=== PATIENT | male | born 1950 | race African-American/Black ===

== ENCOUNTER 2019-09-25 10:55 | Observation (INO) ==
[2019-09-25] MEDS: NS 1,000 ML IV SCH (16:47)
[2019-09-25] MEDS: HUMALOG SUBQ SCH ×2 (16:47→20:28)
[2019-09-25] MEDS: LOVENOX SUBQ SCH (20:28)
[2019-09-25] MEDS: TOUJEO SOLOSTAR SUBQ SCH (20:29)
[2019-09-25] MEDS ORDERED: HUMALOG SUBQ SCH (21:00)
[2019-09-25] MEDS ORDERED: NEXIUM IV SCH (22:00)
[2019-09-25] MEDS ORDERED: SODIUM CHLORIDE 0.9% INJ SCH (22:00)
--- NOTE | 2019-09-26 00:04 | EKG Report ---
Test Performed on : 09/25/2019 10:01:21 PM Test Reason : chest pain Blood Pressure : / mmHG Vent. Rate : 054 BPM Atrial Rate : 054 BPM P-R Int : 192 ms QRS Dur : 094 ms QT Int : 450 ms P-R-T Axes : 040 -26 027 degrees QTc Int : 426 ms Sinus bradycardia. Incomplete right bundle branch block Borderline ECG No previous ECGs available Confirmed by Kellie SUÁREZ, Cameron Burrell ([id number]) on 09/26/2019 7:34:15 AM
--- NOTE | 2019-09-26 04:56 | HISTORY AND PHYSICAL ---
CHIEF COMPLAINT: Slurring of speech, headaches, stroke-like symptoms. HISTORY OF PRESENT ILLNESS: He is a 69-year-old male who was seen at [facility] yesterday with stroke-like symptoms. Apparently I do not have the full report. CT was reported negative. He was sent home and as per the he was confused, slurring of speech, and prone for falls. He called my office and basically admitted directly to the PVC unit for impending stroke. Blood pressure was running very high, and after examining his neurological exam is intact. He was admitted for TIA and control of the blood pressure. As a result a hospital admission was warranted since he was seen twice in the emergency department for the last 2 days. He was seen in my office on 08/28/2019 for ongoing chronic kidney disease and diabetes. PAST MEDICAL HISTORY: Chronic renal failure creatinine 1.7, tinea versicolor infection, insulin dependent type 2 diabetes. He had a diabetic retinopathy with laser treatment on the left side, diabetic nephropathy 3000 mg proteinuria on 02/27/2019, hyperlipidemia, hypertension, osteoarthritis of the hips, vitamin B12 deficiency. PAST SURGICAL HISTORY: Skin graft from a spider bite. EGD and colonoscopy was just reported on 03/06/2019.. MEDICATIONS: In my office aspirin 81 mg daily, amlodipine 10 mg daily, glipizide 10 p.o. b.i.d., Lasix 40 daily, lisinopril 20 mg 2 tablets daily, pravastatin 40 mg daily. He was also given a low dose of Toujeo 10 units daily. ALLERGIES: Penicillin. SOCIAL HISTORY: for 37 years. Retired from [employer]. No smoking. No drug abuse. FAMILY HISTORY: Father of cancer at the age of 73 not known. Mom of cancer at age 70. Details are not known. HEALTH MAINTENANCE: Influenza vaccine refused last physical in January 2019. Colonoscopy in February 2019. Eye exam was done in April 2018.. REVIEW OF SYSTEMS: HEENT: Slight headache and vision problems. No earache. No sore throat. Neck: No goiter. No lymphadenopathy. No bruit. Cardiopulmonary: No chest pain, shortness of breath, PND, orthopnea. GI: No nausea, vomiting, abdominal pain. : No history of hesitancy, frequency, dysuria. Extremities: No swelling of feet. No joint pain. Neurologic: No definitive focal symptoms or weakness noted. PHYSICAL EXAMINATION: VITAL SIGNS: Temperature is 98 degrees, pulse is 76, blood pressure is 189/79. HEENT: Atraumatic, normocephalic. Pupils are equal and reactive to light. Tongue is in midline. NECK: Supple. JVD is not elevated. No goiter. No lymphadenopathy. CHEST: Bilateral air entry. HEART: Sounds are regular. No murmur. GI: Soft, nontender. Good bowel sounds. No masses palpable. EXTREMITIES: No peripheral edema or cyanosis. NEUROLOGIC: No obvious neurological deficits. LABORATORY DATA: Pending. IMAGING: CT head, chronic microvascular ischemic changes. ASSESSMENT AND PLAN: 1. A 69-year-old white male with known history of complicated diabetes, retinopathy, nephropathy and hypertension, who came in with transient ischemic attack symptoms waxing and waning. CT was negative 24 hours ago. Plan is we will set up MRI of the brain, carotid Dopplers, neurovascular checkups, and repeat the labs in the morning. In the meantime control the diabetes with a low dose of Toujeo along with glipizide. 2. IV fluids. 3. Hypertension on amlodipine and lisinopril. 4. Hyperlipidemia on Pravachol. 5. DVT prophylaxis with Lovenox and GI prophylaxis with Protonix. 6. Discussed with the family at bedside and we will follow up on the pending labs and repeat the MRI and carotid Dopplers. cc: Olman Casey MD
[2019-09-26 05:47] LABS: HEMATOCRIT 30.8 % (42.0-52.0); HEMOGLOBIN 9.8 g/dL (14.0-18.0); MCH 25.5 PG (27-31); MCHC 31.8 g/dL (33-37); MPV 8.5 FL (7.4-10.4); RBC 3.85 XMIL (4.7-6.1); RDW 16.1 % (11.5-14.5); WBC 7.52 X1000 (4.8-10.8)
[2019-09-26] MEDS: NS 1,000 ML IV SCH ×2 (06:21→21:43)
[2019-09-26 06:25] LABS: AGAP 10; ALBUMIN 3.4 g/dL (3.5-5.0); ALKALINE PHOSPHATASE 70 U/L (32-122); BUN 22 mg/dL (8-22); CALCIUM 8.9 mg/dL (8.8-10.2); CHLORIDE 107 mmol/L (98-107); CHOLESTEROL 190 mg/dL (0-200); COSMO 280; CREATININE 1.9 mg/dL (0.7-1.2); ESTIMATED GFR 43; GLUCOSE 85 mg/dL (70-104); GOT 17 U/L (10-34); GPT 10 U/L (10-44); HDL 38 mg/dL (35-55); LDL 129 mg/dL; POTASSIUM 3.9 mmol/L (3.5-5.1); SODIUM 139 mmol/L (136-145); TCO2 22 mmol/L (25-35); TOTAL BILIRUBIN 0.48 mg/dL (0.20-1.00); TOTAL PROTEIN 6.8 g/dL (6.3-8.3); TRIGLYCERIDES 116 mg/dL (39-160); VLDL 23 mg/dL
[2019-09-26] MEDS: SODIUM CHLORIDE 0.9% INJ SCH (06:30)
[2019-09-26] MEDS: PROTONIX IV SCH (06:30)
[2019-09-26] MEDS: HUMALOG SUBQ SCH ×4 (06:34→21:19)
[2019-09-26] MEDS: ASPIRIN PO SCH (08:35)
[2019-09-26] MEDS: PRINIVIL PO SCH (08:35)
[2019-09-26] MEDS: GLUCOTROL PO SCH ×2 (08:35→16:54)
[2019-09-26] MEDS: NORVASC PO SCH (08:35)
[2019-09-26] MEDS ORDERED: PRAVACHOL PO SCH ×2 (09:00→21:00)
--- NOTE | 2019-09-26 09:24 | Diag Imaging Result Doc PS360 ---
MRI BRAIN W/O CONTRAST - 09/25/2019 INDICATION: slurred speech COMPARISON: Head CT 09/24/2019 FINDINGS: There is an area of restricted diffusion in the left paramedian segundo compatible with a recent paramedian pontine stroke. Otherwise, the ventricles and sulci are normal in size and contour. There is extensive periventricular cerebral white matter hyper intensity bilaterally compatible with advanced chronic microvascular ischemia. No intracranial mass or hemorrhage. The pituitary is somewhat atrophic. Otherwise midline structures are intact. IMPRESSION: Recent left paramedian pontine stroke. Advanced cerebral white matter chronic microvascular disease. Electronically signed by Andrés Lanier 09/26/2019 9:22 AM
--- NOTE | 2019-09-26 10:05 | Carotid Study ---
DATE: 09/25/2019 REQUESTING PHYSICIAN: Dr. Casey. PACKING MACHINE OPERATOR: Moiz. INDICATIONS: Possible CVA. EQUIPMENT: [employer] Vivid E9 ultrasound system with a 9 L-D transducer. FINDINGS: A complete diagram of ultrasound images can be seen in the patient's medical record. The peak systolic velocity noted on the right side is noted in the proximal internal carotid artery and it is noted to be 85. The peak systolic velocity noted on the left side is also noted in the proximal internal carotid artery and it is noted to be 116. The calculated internal common ratio on the right is 0.94 and left 1.28. The calculated stenosis on the right is 0 to 39 percent, left 40 to 59 percent. There appears to be some tortuosity noted on the left side of the carotid system which may limit the interpretive ability of this study. Both sides seem to have some degree of atherosclerosis but this does not produce a hemodynamically significant flow- limiting stenosis noted by strict velocity criteria. Both vertebral arteries appear to be antegrade flow. INTERPRETATION: Minimal to mild stenosis on the right at 0 to 39 percent, left moderate stenosis of 40 to 59 percent. Again, the patient's left side is somewhat tortuous which may limit the interpretive ability of this study. I would recommend continued monitoring. cc: MD Olman Duke MD
--- NOTE | 2019-09-26 14:58 | CONSULTATION ---
DATE OF CONSULTATION: 09/26/2019 REASON FOR CONSULT: TIA. HISTORY OF PRESENT ILLNESS: This is a 69-year-old, black male with a history of hypertension, hyperlipidemia, and diabetes who is admitted with symptoms concerning for a stroke. History is from the patient and attentive . Apparently, on Wednesday evening, the patient got up and fell which was very unusual for him. They did not think a whole lot of it and went to bed. The next morning, went to [employer]. When she returned later that day, the patient's friends were preparing to take him to the hospital. The patient was having slurred speech and was unsteady and staggering while on his feet. He was a little bit slow to respond. After a couple of ER visits, the patient ultimately ended up at [facility] for treatment. A head CT had shown no acute findings but did show chronic ischemic white matter changes. There were calcifications in the vertebral and internal carotid artery seen bilaterally on CT. MRI of the brain yesterday did show a recent left paramedian pontine stroke as well as advanced cerebral white matter chronic microvascular changes. Overall, the patient's symptoms have significantly improved. He may have very slight slurred speech, per the . He has no prior history of stroke, seizure, or major neurologic events. He did not have other focal neurologic symptoms with this current event. PAST MEDICAL HISTORY: Includes type 2 diabetes, hypertension, hyperlipidemia, chronic kidney disease, diabetic retinopathy on the left. FAMILY HISTORY: No strokes. SOCIAL HISTORY: He has been for many years. He is retired. No tobacco, alcohol, or illicits. ALLERGIES: Listed to penicillins. MEDICATIONS AT HOME: Reviewed with the patient and include pravastatin, aspirin 325 mg daily, I believe amlodipine. REVIEW OF SYSTEMS: Balance of 12 conducted and is otherwise negative except that detailed in the HPI. PHYSICAL EXAMINATION: Vital Signs: Afebrile, blood pressure 168/87 on admission and current 149/68, pulse 40s to 50s, respirations 23, 97% on room air. Mr. Rachel is supine in bed, lying on his left side. He is awake, alert, and oriented. There is a suggestion of mild dysarthria. He follows simple commands consistently. Left/right digit distinction preserved. No language disturbance on brief bedside testing. Pupils are equal, round, and reactive to bright light. Gaze is conjugate. Extraocular movements are full. Intact visual siegel to direct confrontational testing. The face appears symmetric with equal activation. Facial sensation reported intact. Tongue is midline. Could not visualize the palate. He can hear. Shoulder shrug is full. Motor exam, tone is equal in the limbs. Power is preserved in the arms and legs as tested. Rapid alternating movements a bit slower using the right hand compared to the left. Rucndr-sk-poem intact. Fohp-on-iizm intact. Reflexes are absent at the ankles and knees bilaterally, 1+ at the biceps. No clonus. Plantar response is downgoing and with excessive withdrawal. DIAGNOSTICS: MRI of the brain, noncontrast, personally reviewed. There is a recent left paramedian pontine stroke. There is also advanced cerebral white matter chronic microvascular disease as per radiology. Labs reviewed, in the chart. A1c of 8. Creatinine of 1.9. LDL of 129, HDL 38. ASSESSMENT AND PLAN: A 69-year-old male with multiple vascular risk factors, admitted with a recent left paramedian pontine ischemic stroke. Symptoms are much improved from onset, by their report. I agree with typical stroke workup as you are doing. I would consider vascular imaging of the posterior circulation as well. It has probably been around 2 days since stroke onset, based on their description of symptom onset. I think it is reasonable to monitor blood pressure closely over the next day and subsequently begin to bring that into target range, provided he does not have a major stenosis. I would continue aspirin and I would suggest adding Plavix to this for the next 3 weeks, followed by aspirin monotherapy. Physical therapy, occupational therapy, and speech therapy for swallow assessment, if that has not already been completed. Thank you for this consultation. cc: MD Olman Portillo MD
--- NOTE | 2019-09-26 20:32 | PROGRESS NOTE ---
DATE: 09/26/2019 SUBJECTIVE: The patient is anxious to go home. is at bedside. He denies of any headache. Blood pressure is still running high. No focal symptoms or weakness. The patient is undergoing for an MRI and carotid Dopplers. wants a neurology consult. REVIEW OF SYSTEMS: None reported. PHYSICAL EXAMINATION: Temperature is 98 degrees, pulse 51, blood pressure is 150/97.HEENT: Within normal limits. Neck: Supple. Chest: Clear. Heart: Sounds are regular. Abdomen: Belly is soft, nontender. Neurologic: No obvious deficits. INVESTIGATIONS: CBC: White cell count 7.5, hematocrit 30.8, MCV 80, platelets are 406. Sodium 139, potassium 3.9, BUN 22, creatinine 1.9, A1c 8.0, LDL 129, cholesterol 190. ASSESSMENT AND PLAN: 1. Transient ischemic attack symptoms. Follow up on MRI and carotid Dopplers. 2. 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 Continue on lisinopril 40 mg daily, amlodipine 10 daily. 3. Hyperlipidemia was not target. Pravachol 40 and still high and we will add Vascepa. 4. Type 2 diabetes on insulin and glipizide. 5. Deep venous thrombosis prophylaxis with Lovenox. Continue IV fluids and follow up on MRI findings. Neurology consult and carotid Dopplers and we will hold the discharge. LEVEL OF DOCUMENTATION: 25 minutes. cc: Olman Casey MD MTDD
[2019-09-26] MEDS: LOVENOX SUBQ SCH (21:41)
[2019-09-26] MEDS: TOUJEO SOLOSTAR SUBQ SCH (21:42)
[2019-09-27] MEDS: SODIUM CHLORIDE 0.9% INJ SCH (06:31)
[2019-09-27] MEDS: PROTONIX IV SCH (06:31)
[2019-09-27] MEDS: HUMALOG SUBQ SCH (06:32)
[2019-09-27 07:47] VITALS: BP 166/54
[2019-09-27] MEDS: ASPIRIN PO SCH (08:49)
[2019-09-27] MEDS: GLUCOTROL PO SCH (08:49)
[2019-09-27] MEDS: PRINIVIL PO SCH (08:49)
[2019-09-27] MEDS: NORVASC PO SCH (08:49)
--- NOTE | 2019-09-28 08:41 | DISCHARGE SUMMARY ---
ADMISSION DATE: 09/25/2019 DISCHARGE DATE: 09/27/2019 DISCHARGING DIAGNOSES: Cerebrovascular accident left segundo due to lacunar stroke. SECONDARY DIAGNOSES: 1. Moderate carotid stenosis on the left side. 2. Hypertension. 3. Type 2 diabetes. 4. Diabetic nephropathy with chronic kidney disease stage 3. Creatinine of 1.9, and proteinuria 3000 mg. 5. Diabetic retinopathy. 6. Hyperlipidemia. 7. Vitamin B12 deficiency. CONSULTANTS: Dr. Hernández PROCEDURES: 1. Carotid Doppler's. No hemodynamics stenosis in either internal carotid artery. Mild stenosis on the left internal carotid system. 2. MRI of The brain small lacunar pontine stroke. BRIEF HISTORY: Please see the H and P that was done on 09/25/2019. In brief, he is a 69-year-old male with above problems admitted to the hospital with transient ischemic attack symptoms, speech impediments, and weakness for the last 24 hours. He was admitted to the hospital for stroke evaluation. HOSPITAL COURSE: Patient was given IV fluids. For the neuro checks, the patient did not have any seizures or any significant deficits. MRI findings reported small lacunar stroke on the left segundo. The patient was advised to optimize the treatment. He already getting microangiopathy and macroangiopathic changes from underlying diabetes slowly heading to chronic kidney failure. All of the findings were discussed with the patient as well as the at bedside. Appreciated neurology consult. LABORATORY: CBC: White cell count 7.5, hematocrit 30.8, and platelets 406,000. Sodium 139, potassium 3.9, chloride 107, BUN 22, creatinine 1.9, glucose 85, and hemoglobin A1c 8. LFTs were normal and triglycerides 116, cholesterol 119, and LDL 129. The target goal is 70. Blood pressure is running above 160. DISCHARGE INSTRUCTIONS: 1. The patient declined influenza vaccine. 2. Lisinopril 40 mg daily. 3. Pravastatin increased to 80 mg daily. 4. Glipizide 10 p.o. b.i.d. 5. Toujeo 10 units at bedtime. 6. Amlodipine 10 daily. 7. Aspirin 325 daily. 8. Plavix 75 daily. 9. Follow up in my office in 2 weeks. cc: MD Dr. Betty Contreras III, MD
== END 2019-09-27 09:56 | disposition home or self-care (01) ==
LOC: INTOOBSV 10:55 → DIRADM 10:55 → 2N 12:36
PROVIDERS: ADMIT Internal Medicine; ATTEND Internal Medicine